=== PATIENT | female | born 1975 | race American Indian/Alaskan Native ===

== ENCOUNTER 2017-10-12 07:45 | Day surgery (SDC) | payer OTHER ==
[~2017-10-12 07:45] MED LIST: MARCAINE 0.5% INFILTRATI ONE; NACL 0.9% IR ONE; XYLOCAINE 1% 20 mL INFILTRATI ONE
[2017-10-12] MEDS ORDERED: DILAUDID IV PRN (09:42)
[2017-10-12] MEDS ORDERED: ZOFRAN IV PRN (09:42)
--- NOTE | 2017-10-12 09:42 | Anesthesia Day of Surgery ---
Anesthesia Day of Surgery - Day of Surgery Patient Examined: Yes Patient H&P Reviewed: Yes Patient is NPO: Yes
--- NOTE | 2017-10-12 09:42 | Anesthesia Consultation ---
Anesthesia Consult and Med Hx - Airway Anesthetic Teeth Evaluation: Good ROM Head & Neck: Adequate Mental/Hyoid Distance: Adequate Mallampati Class: Class II Intubation Access Assessment: Good - Pulmonary Exam CTA: Yes - Cardiac Exam Cardiac Exam: RRR - Pre-Operative Health Status ASA Pre-Surgery Classification: ASA1 Proposed Anesthetic Plan: General - Pulmonary Hx Smoking: No - Cardiovascular System Hx Hypertension: Yes (RESOLVED DUE TO WT LOSS) - Central Nervous System Hx Psychiatric Problems: No - Hematic Hx Sickle Cell Disease: Yes (TRAIT) - Other Systems Hx Alcohol Use: Yes (OCCA) Hx Substance Use: No Hx Cancer: No
[2017-10-12] MEDS ORDERED: LACTATED RINGERS 1,000 ML IV SCH (10:00)
[2017-10-12] MEDS ORDERED: ANCEF/STERILE WATER 2 GM/20 ML IV NR (10:00)
[2017-10-12] MEDS ORDERED: ROBINUL ONE ×3 (11:26→13:09)
[2017-10-12] MEDS ORDERED: XYLOCAINE CARDIAC IV ONE (11:26)
[2017-10-12] MEDS ORDERED: QUELICIN ONE (11:26)
[2017-10-12] MEDS ORDERED: MARCAINE 0.5% 30 ML INFILTRATI ONE (11:27)
[2017-10-12] MEDS ORDERED: XYLOCAINE 1% 20 mL ONE (11:27)
[2017-10-12] MEDS ORDERED: SUBLIMAZE ONE (11:30)
[2017-10-12] MEDS ORDERED: DIPRIVAN 10 MG/ML IV ONE (11:31)
[2017-10-12] MEDS ORDERED: VERSED ONE (11:43)
[2017-10-12] MEDS ORDERED: ZOFRAN ONE (11:50)
[2017-10-12] MEDS ORDERED: NEOSTIGMINE ONE (11:50)
[2017-10-12] MEDS ORDERED: DECADRON ONE (11:50)
[2017-10-12] MEDS ORDERED: ZEMURON IV ONE (12:00)
[2017-10-12] MEDS ORDERED: ePHEDrine SULFATE ONE (12:10)
[2017-10-12] MEDS ORDERED: TORADOL ONE (12:48)
--- NOTE | 2017-10-12 13:21 | Short Stay Summary ---
Short Stay Documentation Date of service: 10/12/17 Narrative H&P: 42 yo F who was seen the office for epigastric and RUQ abd pain. She was found to have a polyp in her gallbladder and wanted to have cholecystectomy rather than monitor it with repeat ultrasounds. She has no complaints today. - History Principal diagnosis: gallbladder polyp H&P: obtained from office - Allergies and Medications Current Medications: Allergies No Known Allergies Allergy (Verified 10/09/17 16:28) Active Medications Cefazolin Sodium (Ancef/Sterile Water 2 Gm/20 Ml) 2 gm IV PREOP NR Stop: 10/12/17 21:00 Lactated Ringer's (Lactated Ringers) 1,000 mls @ 42 mls/hr IV DIRECT KIMI Last Admin: 10/12/17 10:00 Dose: 42 mls/hr - Brief post op/procedure progress note Date of procedure: 10/12/17 Pre-op diagnosis: gallbladder polyp, abdominal pain Post-op diagnosis: same Procedure: Laparoscopic cholecystectomy Anesthesia: GETA, local Findings: Liver with omental adhesions Surgeon: GLENDA ROLLE Estimated blood loss: minimal Pathology: list (gallbladder) Specimen disposition: to lab Condition: stable - Hospital course Hospital course: Patient observed in PACU and discharged to home in stable condition when criteria was met. - Disposition Condition at discharge: Good Disposition: DC-01 TO HOME OR SELFCARE Short Stay Discharge Plan Activity: other (no heavy lifting more than 15-20 lbs for the next 2 weeks. No driving if taking narcotic pain meds.) Diet: regular Wound: open to air (May shower tomorrow, no baths/hottubs/pools until incisions healed. Pat incisions dry, do not scrub.) Follow up with: SYLVESTER MALONEY MD [Primary Care Provider] - 7 Days GLENDA ROLLE DO [Staff Physician] - 14 Days Prescriptions: traMADol [Ultram 50 MG tab] 50 mg PO Q6HR PRN #15 tablet PRN Reason: Pain
[2017-10-12] MEDS ORDERED: ULTRAM PO PRN (14:38)
[2017-10-12 16:04] VITALS: BP 117/72
--- NOTE | 2017-10-12 17:32 | Post Anesthesia Evaluation ---
- Post Anesthesia Evaluation Patient Participated: Yes Airway Patent: Yes Stable Respiratory Function: Yes Nausea/Vomiting: No Temp > 96.8F: Yes Pain Manageable: Yes Adequeate Hydration: Yes Anesthesia Complications: No
--- NOTE | 2017-10-12 18:10 | Operative Report ---
Operative Report Operative Report: Date of procedure: 10/12/17 Pre-op diagnosis: gallbladder polyp, abdominal pain Post-op diagnosis: same Procedure: Laparoscopic cholecystectomy Anesthesia: GETA, local Findings: Liver with omental adhesions Surgeon: GLENDA ROLLE Estimated blood loss: minimal Pathology: list (gallbladder) Specimen disposition: to lab Condition: stable HPI and indication: 42 yo F who was seen in the surgery office for c/o RUQ and epigastric abdominal pain after eating fatty meals. The patient was found to have 0.6 cm gallbladder polyp on ultrasound. The patient was given the option to undergo monitoring for polyp growth with serial ultrasounds vs cholecystectomy. It was also discussed that cholecystectomy may not resolve pain. After all risks, benefits, and alternatives to cholecystectomy were discussed, the patient elected to proceed with surgery. All questions were answered and consent signed in the office. Procedure in detail: The patient was identified in the preoperative area and taken back to the operating room and placed on the operating room table in supine position. After anesthesia was induced, the abdomen was prepped and draped in the usual sterile fashion and a timeout performed. All skin incisions were infiltrated with local anesthetic. An attempt was made to insufflate the abdomen via a veress needle through a 5mm supraumbilical incision. However, pressure readings were high despite confirmation of positioning of the veress using the saline drop test. Another attempt was made via a small LUQ incision but again the pressure readings were high despite confirmation of positioning of the veress using the saline drop test. The veress needle was removed. The 5mm supraumbilical incision was extended and a cut down approach was used to enter the abdomen. The anterior fascia was seen and grasped between two hemostats and incised with metzenbaum scissors. The muscle was split in the direction of its fibers and the posterior fascia was grasped between two hemostats and incised with metzenbaum scissors. The peritoneum was bluntly entered using a gloved finger and a 5mm trocar inserted. The abdomen was insufflated and inspected. There was no injury to any of the abdominal structures on careful exam. An additional 12mm subxyphoid and 2 - 5mm RUQ trocars were placed under direct visualiztion. The patient was tilted to the left and placed in reverse trendelberg position. The gallbladder was seen and the fundus grasped and retracted cephalad over the liver. Omental adhesions to the liver were taken down with electrocautery in order to better expose the gallbladder. The cystic duct and artery were meticulously dissected and skeletonized using the [place]. The critical view was obtained and these were the only two structures entering the gallbladder. The cystic duct and artery were then clipped, with 3 proximal and 1 distal on the cystic duct and 2 proximal and 1 distal on the artery. The cystic duct and artery were then transected between the clips using endoshears. The gallbladder was dissected off the liver bed using hook electrocautery and placed into an endocatch bag. This was removed from the abdomen via the 12mm port. The liver bed and gallbladder fossa was inspected and there was no bleeding or bile leakage in this area. The clips were visualized and intact. The patient was placed into neutral position. The 12 mm port fascia was closed using 0- vicryl stitch via the marisol freedman. The remaining ports were removed under direct visualization. The skin incisions were once again infiltrated with lidocaine and closed with 4-0monocryl subcuticular stitches and skin glue. At the end of the case, all sponge, instrument, and sharp counts were correct x2. The patient was awoken from anesthesia, extubated, and taken to PACU in stable condition.
== END 2017-10-12 15:10 | disposition home or self-care (01) ==
LOC: OR 07:45
PROVIDERS: ATTEND Surgery
DX: K82.4 Cholesterolosis of gallbladder (principal); I10 Essential (primary) hypertension; D57.3 Sickle-cell trait; E78.00 Pure hypercholesterolemia, unspecified; E11.9 Type 2 diabetes mellitus without complications
CPT/HCPCS: 47562; 81025; 88304; J0330; J0690; J1100; J1885; J2001; J2250; J2405; J2704; J2710; J3010; J7120